=== PATIENT | female | born 1995 | race Caucasian/White ===

== ENCOUNTER 2020-09-06 01:50 | Outpatient (CLI) | payer OTHER, SELFPAY ==
[2020-09-06 02:13] VITALS: BMI 26.5
[2020-09-06 02:17] VITALS: BP 118/60; PULSE 86; TEMP 36.9; O2SAT 99
[2020-09-06 02:44] LABS: ROM Internal Control Test YES-OK TO RESULT pt. (Internal QC); ROM Patient Test Negative (Negative)
[2020-09-06 03:00] LABS: Amphetamine Urine VISTA NEGATIVE (<1000 ng/mL); Barbiturate Urine VISTA NEGATIVE (< 200 ng/mL); Benzodiazepine Urine VISTA NEGATIVE (< 200 ng/mL); Cocaine Urine VISTA NEGATIVE (< 300 ng/mL); Ecstacy Urine VISTA NEGATIVE (< 500 ng/mL); Methadone Urine VISTA NEGATIVE (< 300 ng/mL); PCP Urine VISTA NEGATIVE (< 25 ng/mL); THC Urine VISTA NEGATIVE (< 50 ng/mL); Vista UDS pH Range 6
[2020-09-06 03:31] LABS: Bacteria 0 SEEN /hpf (None Seen); Mucous, Urine 0 SEEN /hpf (<or=2+); Red Blood Cells-Urine 0 SEEN /hpf (0-5); Squamous Epithelial Cells - UA 0 SEEN /hpf (5-10)
[2020-09-06 03:32] LABS: Color, Urine Yellow (Yellow); Glucose, Dipstick Normal (Normal); Ketone-Dipstick 50 mg/dl (Negative); Leukocyte Esterase-Dipstick 100 /ul (Negative); Nitrite-Dipstick Negative (Negative); Occult Blood-Urine Negative /ul (Negative); Protein-Dipstick Negative (Negative); Urine Bilirubin Dipstick Negative (Negative); Urine Clarity Clear (Clear); Urine Urobilinogen Normal (Normal)
[2020-09-06 03:39] LABS: White Blood Cells 0-5 SEEN /hpf (0-5)
[2020-09-06 03:53] VITALS: BP 114/54; PULSE 88; TEMP 36.2; O2SAT 98
[2020-09-06 04:11] LABS: Absolute Lymphocyte Count 2.26 X10^3/uL (0.83-4.51); Absolute Neutrophil Count 6.4 X10^3/uL (2.0-7.7); Basophil# 0.02 X10^3/uL; Basophil% 0.2 % (0-1); Eosinophil# 0.14 X10^3/uL; Eosinophils% 1.5 % (0-5); Hematocrit 28.8 % (37-47); Hemoglobin 9.2 g/dL (12.0-15.0); Lymphocyte # 2.26 X10^3/ul (4.0); Lymphocyte % 23.8 % (19-41); Mean Corp Hgb Conc 31.9 g/dL (32-36); Mean Corpuscular Hgb 28.4 pg (27.0-32.0); Mean Corpuscular Volume 88.9 fL (81-99); Mean Platelet Vol. 10.7 fl (6.2-12.0); Monocyte# 0.64 X10^3/uL; Monocyte% 6.7 % (0-10); NRBC Flagged by Analyzer 0 % (0-5); Neutrophil # 6.37 X10^3/uL (2.7-7.7); Neutrophil % 67.2 % (47-70); Platelet Count 158 K/mm3 (150-450); RBC Distribution Width CV 13.3 % (11.6-14.6); RBC Distribution Width SD 43.6 fl (35.1-43.9); Red Blood Count 3.24 M/mm3 (4.2-5.4); White Blood Count 9.5 K/mm3 (4.4-11.0)
[2020-09-06 05:33] VITALS: BP 113/57; PULSE 93; TEMP 36.2; O2SAT 99
[2020-09-06 05:34] LABS: Chlamydia Trachomatis by PCR Negative (Negative); Neisserai gonorrhoeae by PCR Negative (Negative); Probe Check PASS; Sample Adequacy Control PASS; Specimen Processing Control PASS
--- NOTE | 2020-09-06 12:06 | PCM.PN.BLA ---
Progress Note CC: contractions HPI: 24 yo at 34/1w presenting with contractions. complicated by poor care. Pt last seen by Terrence [employer] ME[employer]ICAL TECHNICIAN in March 2020. Transferred care, but had not seen that provider since June 2020.Upon further review of chart, pt did not have anatomy US with our practice. Per RN had last seen Shilpa around 18-20w. OBHx: G1: 40w G2: 36w G3: 37w G4: current Medical Hx: denies Surgical HX: colonoscopy, WTE Allergies:NKDA PE: Vital Signs Temp Pulse BP Pulse Ox 09/06/20 05:33 97.1 F L 93 113/57 L 99 09/06/20 03:53 97.1 F L 88 114/54 L 98 09/06/20 02:17 98.5 F 86 118/60 99 CE per RN /-3 Labs: Laboratory Last Values WBC 9.5 K/mm3 (4.4-11.0) 09/06/20 04:00 RBC 3.24 M/mm3 (4.2-5.4) L 09/06/20 04:00 Hgb 9.2 g/dL (12.0-15.0) L 09/06/20 04:00 Hct 28.8 % (37-47) L 09/06/20 04:00 MCV 88.9 fL (81-99) 09/06/20 04:00 MCH 28.4 pg (27.0-32.0) 09/06/20 04:00 MCHC 31.9 g/dL (32-36) L 09/06/20 04:00 RDW Std Deviation 43.6 fl (35.1-43.9) 09/06/20 04:00 RDW Coeff of Nneka 13.3 % (11.6-14.6) 09/06/20 04:00 Plt Count 158 K/mm3 (150-450) 09/06/20 04:00 MPV 10.7 fl (6.2-12.0) 09/06/20 04:00 Immature Gran % (Auto) 0.600 % (0.0-0.9) 09/06/20 04:00 Neut % (Auto) 67.2 % (47-70) 09/06/20 04:00 Lymph % (Auto) 23.8 % (19-41) 09/06/20 04:00 [place] % (Auto) 6.7 % (0-10) 09/06/20 04:00 Eos % (Auto) 1.5 % (0-5) 09/06/20 04:00 Baso % (Auto) 0.2 % (0-1) 09/06/20 04:00 Absolute Neuts (auto) 6.4 X10^3/uL (2.0-7.7) 09/06/20 04:00 Absolute Lymphs (auto) 2.26 X10^3/uL (0.83-4.51) 09/06/20 04:00 Nucleated RBC % 0 % (0-5) 09/06/20 04:00 Urine Color Yellow (Yellow) 09/06/20 02:37 Urine Clarity Clear (Clear) 09/06/20 02:37 Urine pH 7.0 (5.0 - 8.0) 09/06/20 02:37 Ur Specific [place] 1.010 (1.002-1.030) 09/06/20 02:37 Urine Protein Negative mg/dl (Negative) 09/06/20 02:37 Urine Glucose (UA) Normal mg/dl (Normal) 09/06/20 02:37 Urine Ketones 50 mg/dl (Negative) H 09/06/20 02:37 Urine Occult Blood Negative /ul (Negative) 09/06/20 02:37 Urine Nitrite Negative (Negative) 09/06/20 02:37 Urine Bilirubin Negative mg/dL (Negative) 09/06/20 02:37 Urine Urobilinogen Normal mg/dl (Normal) 09/06/20 02:37 Ur Leukocyte Esterase 100 /ul (Negative) H 09/06/20 02:37 Urine RBC 0 SEEN /hpf (0-5) 09/06/20 02:37 Urine WBC 0-5 SEEN /hpf (0-5) 09/06/20 02:37 Ur Squamous Epith Cells 0 SEEN /hpf (5-10) 09/06/20 02:37 Urine Bacteria 0 SEEN /hpf (None Seen) 09/06/20 02:37 Urine Mucus 0 SEEN /hpf (<or=2+) 09/06/20 02:37 Vag Amniotic Fld Detect Negative (Negative) 10/06/20 02:10 Urine Opiates Screen NEGATIVE (< 300 ng/mL) 09/06/20 02:37 Urine Methadone Screen NEGATIVE (< 300 ng/mL) 09/06/20 02:37 Ur Barbiturates Screen NEGATIVE (< 200 ng/mL) 09/06/20 02:37 Ur Phencyclidine Scrn NEGATIVE (< 25 ng/mL) 09/06/20 02:37 Ur Amphetamines Screen NEGATIVE (<1000 ng/mL) 09/06/20 02:37 U Methamphetamin-MDMA NEGATIVE (< 500 ng/mL) 09/06/20 02:37 U Benzodiazepines Scrn NEGATIVE (< 200 ng/mL) 09/06/20 02:37 Urine Cocaine Screen NEGATIVE (< 300 ng/mL) 09/06/20 02:37 U Cannabinoids Screen NEGATIVE (< 50 ng/mL) 09/06/20 02:37 Ur Drug Screen Comment 09/06/20 02:37 Chlam trachomat DNA PCR Negative (Negative) 09/06/20 02:37 N.gonorrhoeae DNA (PCR) Negative (Negative) 09/06/20 02:37 Group B Strep DNA Cancelled 09/06/20 02:37 Specimen Comment Cancelled 09/06/20 02:37 Blood Type O POSITIVE 09/06/20 04:00 Antibody Screen NEGATIVE 09/06/20 04:00 FHR: 110s/mod nneka/+accel/no decel [place]: irregular A/p: 24 yo at 34/1w presenting with contractions. complicated by poor care. Poor PNC labs done. U tox negative. Not ruptured, not in labor. Encourage care follow up. NST reactive. Pt okay to discharge if cervix unchanged.
[2020-09-06 17:43] LABS: HIV - WCH Non-Reactive (Nonreactive); Hepatitis B Surface Antigen Non-Reactive (Nonreactive); Hepatitis C Antibody Non-Reactive (Nonreactive)
[2020-09-07 09:06] LABS: Rubella IgG 45.9 IU/mL
[2020-09-08 01:34] LABS: Rapid Plasmin Reagin (RPR) NONREACTIVE (NONREACTIVE)
== END 2020-09-06 05:45 | disposition home or self-care (01) ==
LOC: WPOUT 02:11 → OBT 02:12
PROVIDERS: Obstetrics & Gynecology; Visit Provider Student in an Organized Health Care Education/Training Program
DX: O09.33 Supervision of pregnancy with insufficient antenatal care, third trimester (principal); O62.9 Abnormality of forces of labor, unspecified; Z3A.34 34 weeks gestation of pregnancy
CPT/HCPCS: 36415; 59025; 59050; 80307; 81001; 84112; 85025; 86592; 86703; 86762; 86803; 86850; 86900; 86901; 87340; 87491; 87591; 99218; G0378